=== PATIENT | male | born 1955 | race Caucasian/White ===

== ENCOUNTER 2023-08-23 11:37 | Inpatient (IN) | payer OTHER ==
[2023-08-23 12:57] LABS: #Eosinphils 0.1 thou/uL (0.0-0.7); #Monocytes 0.5 thou/uL (0.11-0.59); #Neutrophils 3.5 thou/uL (1.40-6.50); %Basophils 0.7 % (0.0-1.0); %Eosinophils 1.5 % (0.0-10.0); %Lymphocytes 8.6 % (21.0-51.0); %Monocytes 10.6 % (0.0-10.0); %Neutrophils 78.2 % (42.0-75.0); Hemoglobin 8.1 g/dL (14.0-18.0); Mean Corpuscular HGB CONC 28.9 g/dL (32.0-36.0); Mean Corpuscular Hemoglobin 22.7 pg (27.0-31.0); Mean Corpuscular Volume 78.4 fl (78.0-98.0); Mean Platelet Volume 9.5 fL (7.4-10.4); Platelet Count 191 10x3/uL (130-400); RBC Distribution Width 16.8 % (11.5-14.5); Red Blood Cell (RBC) Count 3.57 mill/uL (4.70-6.10); White Blood Cell (WBC) Count 4.5 10x3/uL (4.8-10.8)
[2023-08-23 13:13] LABS: INR-International Normal Ratio 2.1; Prothrombin Time 24.9 sec (12.0-14.7)
[2023-08-23 13:25] LABS: Anisocytosis SLIGHT = 6-15 cells (100X) (0-5/hpf); Hypochromia SLIGHT = 6-15 cells (100X) (0-5/hpf); Microcytosis SLIGHT = 6-15 cells (100X) (0-5/hpf); Poikilocytosis SLIGHT = 6-15 cells (100X) (0-5/hpf); Polychromasia SLIGHT = 2-3 cells (100X) (0-2/hpf)
[2023-08-23 13:26] LABS: ALT (SGPT) 8 U/L (8-55); AST (SGOT) 11 U/L (5-34); Albumin 3.8 g/dL (3.4-4.8); Alkaline Phosphatase 170 U/L (40-110); Anion Gap 10 mmol/L (10-20); BUN (Urea Nitrogen) 19 mg/dL (8.4-25.7); Bilirubin, Total 1.2 mg/dL (0.2-1.2); Calc. Creatinine Clearance 0 mL/min (70-130); Calcium 8.7 mg/dL (7.8-10.44); Carbon Dioxide 30 mmol/L (23-31); Chloride 99 mmol/L (98-107); Estimated GFR 37; Globulin 2.8 g/dL (2.4-3.5); Glucose 305 mg/dL (80-115); Ovalocytes SLIGHT = 2-5 cells (100X) (0-1/hpf); Platelet Adequacy Comment Appears Adequate; Potassium 3.9 mmol/L (3.5-5.1); Protein, Total 6.6 g/dL (5.8-8.1); Schistocytes SLIGHT = 2-5 cells (100X) (0-1/hpf); Sodium 135 mmol/L (136-145)
[2023-08-23] MEDS ORDERED: Dextrose 50% Abboject 50 ML SYRINGE SLOW IVP PRN (15:48)
[2023-08-23] MEDS ORDERED: Dextrose 5% in Water 1,000 ML IV PRN (15:48)
[2023-08-23] MEDS ORDERED: Glucagon 1 MG/ML KIT IM PRN (15:48)
[2023-08-23] MEDS ORDERED: Acetaminophen 325 MG TAB PO PRN (15:48)
[2023-08-23] MEDS ORDERED: HumaLOG 300 UNITS/3 ML VIAL SC PRN (15:48)
[2023-08-23 15:52] LABS: Troponin I Less than 0.010 ng/mL (< 0.028)
[2023-08-23] MEDS ORDERED: Pantoprazole 40 MG VIAL IVP SCH (16:00)
[2023-08-23 18:37] LABS: Troponin I Less than 0.010 ng/mL (< 0.028)
[2023-08-23 21:23] VITALS: BMI 35.8
[2023-08-23 22:06] LABS: #Eosinphils 0.1 thou/uL (0.0-0.7); #Monocytes 0.7 thou/uL (0.11-0.59); %Basophils 0.4 % (0.0-1.0); %Eosinophils 2.7 % (0.0-10.0); %Lymphocytes 13.6 % (21.0-51.0); %Monocytes 16.1 % (0.0-10.0); %Neutrophils 66.8 % (42.0-75.0); Hematocrit 26.7 % (42.0-52.0); Hemoglobin 7.7 g/dL (14.0-18.0); Mean Corpuscular HGB CONC 28.8 g/dL (32.0-36.0); Mean Corpuscular Hemoglobin 22.3 pg (27.0-31.0); Mean Corpuscular Volume 77.4 fl (78.0-98.0); Mean Platelet Volume 9.7 fL (7.4-10.4); Platelet Count 175 10x3/uL (130-400); RBC Distribution Width 16.9 % (11.5-14.5); Red Blood Cell (RBC) Count 3.45 mill/uL (4.70-6.10); White Blood Cell (WBC) Count 4.5 10x3/uL (4.8-10.8)
[2023-08-23] MEDS: hydrALAZINE 25 MG TAB PO SCH (23:33)
[2023-08-23] MEDS: Atorvastatin Calcium 40 MG TAB PO SCH (23:34)
[2023-08-23] MEDS: Metoprolol Tartrate 50 MG TAB PO SCH (23:34)
[2023-08-23] MEDS: Tamsulosin HCl 0.4 MG CAP PO SCH (23:34)
[2023-08-23] MEDS: Pramipexole Di-HCl 0.125 MG TAB PO SCH (23:35)
[2023-08-24 05:38] LABS: #Eosinphils 0.2 thou/uL (0.0-0.7); #Monocytes 0.7 thou/uL (0.11-0.59); #Neutrophils 2.9 thou/uL (1.40-6.50); %Basophils 0.7 % (0.0-1.0); %Eosinophils 3.4 % (0.0-10.0); %Lymphocytes 14.2 % (21.0-51.0); %Monocytes 15.3 % (0.0-10.0); %Neutrophils 66.2 % (42.0-75.0); Hematocrit 27.6 % (42.0-52.0); Hemoglobin 7.8 g/dL (14.0-18.0); Mean Corpuscular HGB CONC 28.3 g/dL (32.0-36.0); Mean Corpuscular Volume 77.7 fl (78.0-98.0); Mean Platelet Volume 8.8 fL (7.4-10.4); Platelet Count 165 10x3/uL (130-400); RBC Distribution Width 16.7 % (11.5-14.5); Red Blood Cell (RBC) Count 3.55 mill/uL (4.70-6.10); White Blood Cell (WBC) Count 4.4 10x3/uL (4.8-10.8)
[2023-08-24 06:04] LABS: Anion Gap 10 mmol/L (10-20); BUN (Urea Nitrogen) 15 mg/dL (8.4-25.7); Calc. Creatinine Clearance 71 mL/min (70-130); Calcium 8.7 mg/dL (7.8-10.44); Carbon Dioxide 29 mmol/L (23-31); Chloride 102 mmol/L (98-107); Estimated GFR 46; Glucose 185 mg/dL (80-115); Potassium 4.2 mmol/L (3.5-5.1); Sodium 137 mmol/L (136-145)
[2023-08-24] MEDS: HumaLOG 300 UNITS/3 ML VIAL SC PRN ×3 (07:01→18:51)
[2023-08-24] MEDS ORDERED: Pantoprazole 40 MG VIAL IVP SCH (09:00)
[2023-08-24] MEDS ORDERED: Insulin Glargine 30 UNITS/0.3 ML VIAL SC SCH (09:00)
[2023-08-24] MEDS: dilTIAZem CD 180 MG CAP PO SCH (09:10)
[2023-08-24] MEDS: Potassium Chloride 20 MEQ TAB PO SCH (09:10)
[2023-08-24] MEDS: FLUoxetine HCl 20 MG CAP PO SCH (09:10)
[2023-08-24] MEDS: hydrALAZINE 25 MG TAB PO SCH ×3 (09:10→21:49)
[2023-08-24] MEDS: Metoprolol Tartrate 50 MG TAB PO SCH ×2 (09:11→21:50)
[2023-08-24] MEDS: Insulin Glargine 30 UNITS/0.3 ML VIAL SC SCH (09:11)
[2023-08-24] MEDS: Furosemide 80 MG TAB PO SCH (09:11)
[2023-08-24] MEDS: GoLYTELY 4,000 ml Bottle PO SCH (21:47)
[2023-08-24] MEDS: Tamsulosin HCl 0.4 MG CAP PO SCH (21:49)
[2023-08-24] MEDS: Atorvastatin Calcium 40 MG TAB PO SCH (21:49)
[2023-08-24] MEDS: Pramipexole Di-HCl 0.125 MG TAB PO SCH (21:49)
[2023-08-24] MEDS: Pantoprazole 40 MG VIAL IVP SCH (21:50)
[2023-08-25] MEDS: GoLYTELY 4,000 ml Bottle PO SCH (02:17)
[2023-08-25] MEDS: hydrALAZINE 25 MG TAB PO SCH ×2 (08:29→15:13)
[2023-08-25] MEDS: Metoprolol Tartrate 50 MG TAB PO SCH (08:29)
[2023-08-25] MEDS: dilTIAZem CD 180 MG CAP PO SCH (08:30)
[2023-08-25] MEDS: Pantoprazole 40 MG VIAL IVP SCH (08:30)
[2023-08-25] MEDS ORDERED: PROPOFOL 20 ML ONE ×5 (11:27→12:03)
[2023-08-25] MEDS ORDERED: fentaNYL 50 mcg/mL 1 mL Vial ONE (11:27)
[2023-08-25] MEDS ORDERED: Ondansetron HCl/PF 4 MG/2 ML Vial IVP PRN (12:19)
[2023-08-25] MEDS ORDERED: Promethazine HCl 25 MG/ML VIAL IM PRN (12:19)
[2023-08-25 14:10] LABS: #Eosinphils 0.2 thou/uL (0.0-0.7); #Monocytes 0.6 thou/uL (0.11-0.59); #Neutrophils 4.7 thou/uL (1.40-6.50); %Basophils 0.6 % (0.0-1.0); %Eosinophils 2.7 % (0.0-10.0); %Lymphocytes 11.4 % (21.0-51.0); %Monocytes 9.7 % (0.0-10.0); %Neutrophils 75.3 % (42.0-75.0); Hematocrit 29.5 % (42.0-52.0); Hemoglobin 8.6 g/dL (14.0-18.0); Mean Corpuscular HGB CONC 29.2 g/dL (32.0-36.0); Mean Corpuscular Hemoglobin 22.3 pg (27.0-31.0); Mean Corpuscular Volume 76.4 fl (78.0-98.0); Mean Platelet Volume 9.4 fL (7.4-10.4); Platelet Count 199 10x3/uL (130-400); RBC Distribution Width 16.9 % (11.5-14.5); Red Blood Cell (RBC) Count 3.86 mill/uL (4.70-6.10); White Blood Cell (WBC) Count 6.3 10x3/uL (4.8-10.8)
[2023-08-25 14:33] LABS: Anion Gap 15 mmol/L (10-20); BUN (Urea Nitrogen) 13 mg/dL (8.4-25.7); Calc. Creatinine Clearance 74 mL/min (70-130); Calcium 8.7 mg/dL (7.8-10.44); Carbon Dioxide 25 mmol/L (23-31); Chloride 101 mmol/L (98-107); Estimated GFR 48; Glucose 98 mg/dL (80-115); Iron 19 ug/dL (65-175); Iron Binding Capacity, Total 385 mcg/dL (261-462); Potassium 3.9 mmol/L (3.5-5.1); Sodium 137 mmol/L (136-145)
[2023-08-25] MEDS: Potassium Chloride 20 MEQ TAB PO SCH (15:11)
[2023-08-25] MEDS: Furosemide 80 MG TAB PO SCH (15:11)
[2023-08-25] MEDS: FLUoxetine HCl 20 MG CAP PO SCH (15:12)
[2023-08-25] MEDS: Insulin Glargine 30 UNITS/0.3 ML VIAL SC SCH (15:17)
[2023-08-25] MEDS ORDERED: Iron, Sodium Ferric Gluconate 250 MG in Sodium Chloride 0.9% 250 ML 250 ML IVPB SCH (16:00)
[2023-08-25] MEDS ORDERED: Iron, Sodium Ferric Gluconate 125 MG in Sodium Chloride 0.9% 100 ML IVPB SCH ×2 (16:00)
[2023-08-25 17:03] VITALS: BP 118/62; TEMP 97.5
== END 2023-08-25 18:30 | disposition home or self-care (01) | DRG 812 ==
LOC: ERS 11:37 → ERHOLD 15:28 → 2SE 21:19
PROVIDERS: ADMIT Family Medicine; ATTEND Family Medicine
PROC: 0DBL8ZX Excision of Transverse Colon, Via Natural or Artificial Opening Endoscopic, Diagnostic (ICD-10-PCS; principal; 2023-08-25)
PROC: 0DB98ZX Excision of Duodenum, Via Natural or Artificial Opening Endoscopic, Diagnostic (ICD-10-PCS; 2023-08-25)
DX: D50.9 Iron deficiency anemia, unspecified (principal); K63.5 Polyp of colon; K64.4 Residual hemorrhoidal skin tags; K64.8 Other hemorrhoids; I12.9 Hypertensive chronic kidney disease with stage 1 through stage 4 chronic kidney disease, or unspecified chronic kidney disease; I25.10 Atherosclerotic heart disease of native coronary artery without angina pectoris; N18.30 Chronic kidney disease, stage 3 unspecified; E11.22 Type 2 diabetes mellitus with diabetic chronic kidney disease; E78.5 Hyperlipidemia, unspecified; G25.81 Restless legs syndrome; I48.91 Unspecified atrial fibrillation; K21.9 Gastro-esophageal reflux disease without esophagitis; N40.0 Benign prostatic hyperplasia without lower urinary tract symptoms; F39 Unspecified mood [affective] disorder; Z95.818 Presence of other cardiac implants and grafts; Z90.49 Acquired absence of other specified parts of digestive tract; Z90.89 Acquired absence of other organs; Z98.890 Other specified postprocedural states
CPT/HCPCS: 36415; 36416; 71045; 80048; 80053; 83540; 83550; 83880; 84484; 85025; 85610; 85730; 86850; 86900; 86901; 88305; 93005; 93010; 93306; C9113; J1815; J2704; J2916; J3010; J3490

== ENCOUNTER 2024-09-12 13:55 | Observation (INO) | payer OTHER ==
[2024-09-12] MEDS ORDERED: Atropine Sulfate 1 mg/10 ml Syringe ONE (14:13)
[2024-09-12 14:41] LABS: #Basophils 0.03 10x3/uL (0.0-0.2); %Basophils 0.4 % (0.0-1.0); %Eosinophils 1.3 % (0.0-10.0); %Lymphocytes 14.9 % (21.0-51.0); %Monocytes 6.7 % (0.0-10.0); %Neutrophils 76.2 % (42.0-75.0); Hematocrit 38.5 % (42.0-52.0); Hemoglobin 12.8 g/dL (14.0-18.0); Mean Corpuscular HGB CONC 33.2 g/dL (32.0-36.0); Mean Corpuscular Hemoglobin 29.8 pg (27.0-31.0); Mean Corpuscular Volume 89.7 fL (78.0-98.0); Mean Platelet Volume 10.4 fL (7.4-10.4); Platelet Count 159 10x3/uL (130-400); RBC Distribution Width 13.5 % (11.5-14.5); Red Blood Cell (RBC) Count 4.29 mill/uL (4.70-6.10)
[2024-09-12 14:54] LABS: INR-International Normal Ratio 1.7; Prothrombin Time 19.8 sec (12.0-14.7)
[2024-09-12 14:55] LABS: PTT 33.8 sec (22.9-36.1)
[2024-09-12 15:08] LABS: ALT (SGPT) 14 U/L (8-55); AST (SGOT) 15 U/L (5-34); Albumin 3.2 g/dL (3.4-4.8); Alkaline Phosphatase 148 U/L (40-110); Anion Gap 12 mmol/L (10-20); BUN (Urea Nitrogen) 27 mg/dL (8.4-25.7); Bilirubin, Total 1.1 mg/dL (0.2-1.2); Calc. Creatinine Clearance 0 mL/min (70-130); Calcium 10.6 mg/dL (7.8-10.44); Carbon Dioxide 22 mmol/L (23-31); Chloride 105 mmol/L (98-107); Estimated GFR 36; Globulin 2.9 g/dL (2.4-3.5); Glucose 232 mg/dL (80-115); Potassium 4.5 mmol/L (3.5-5.1); Protein, Total 6.1 g/dL (5.8-8.1); Sodium 134 mmol/L (136-145)
[2024-09-12] MEDS ORDERED: Acetaminophen 325 MG TAB PO PRN (16:57)
[2024-09-12 17:09] VITALS: BMI 34.5
[2024-09-12] MEDS: Sodium Chloride 0.9% 1,000 ML IV SCH (17:13)
[2024-09-12 18:40] LABS: Troponin I 0.013 ng/mL (< 0.028)
[2024-09-12] MEDS ORDERED: Ondansetron ODT 4 MG TAB SL PRN (18:45)
[2024-09-12] MEDS ORDERED: Ondansetron PF 4 MG/2 ML Vial IVP PRN (18:45)
[2024-09-12 20:44] LABS: Troponin I Less than 0.010 ng/mL (< 0.028)
[2024-09-12] MEDS: Apixaban 5 MG TAB PO SCH (20:56)
[2024-09-12] MEDS: Atorvastatin Calcium 40 MG TAB PO SCH (20:56)
[2024-09-12] MEDS: Aspirin 81 mg Enteric Coated Tablet PO SCH (20:58)
[2024-09-13 04:39] LABS: #Basophils 0.03 10x3/uL (0.0-0.2); %Basophils 0.5 % (0.0-1.0); %Lymphocytes 18.6 % (21.0-51.0); %Monocytes 11.3 % (0.0-10.0); %Neutrophils 66.4 % (42.0-75.0); Hematocrit 33.7 % (42.0-52.0); Mean Corpuscular HGB CONC 32.6 g/dL (32.0-36.0); Mean Corpuscular Volume 91.8 fL (78.0-98.0); Mean Platelet Volume 10.3 fL (7.4-10.4); Platelet Count 128 10x3/uL (130-400); RBC Distribution Width 13.4 % (11.5-14.5); Red Blood Cell (RBC) Count 3.67 mill/uL (4.70-6.10)
[2024-09-13 05:11] LABS: Anion Gap 10 mmol/L (10-20); BUN (Urea Nitrogen) 23 mg/dL (8.4-25.7); Calc. Creatinine Clearance 62 mL/min (70-130); Calcium 8.5 mg/dL (7.8-10.44); Carbon Dioxide 25 mmol/L (23-31); Chloride 108 mmol/L (98-107); Estimated GFR 41; Glucose 130 mg/dL (80-115); Potassium 3.7 mmol/L (3.5-5.1); Sodium 139 mmol/L (136-145)
[2024-09-13] MEDS: Ferrous Sulfate 325 MG TAB PO SCH (09:23)
[2024-09-13 14:59] VITALS: BP 122/84; TEMP 99.1
== END 2024-09-13 16:58 | disposition home or self-care (01) ==
LOC: ERS 13:55 → INTOOBSV 16:51 → 2NO 16:51
PROVIDERS: ADMIT Internal Medicine; ATTEND Internal Medicine
DX: I95.9 Hypotension, unspecified (principal); I25.10 Atherosclerotic heart disease of native coronary artery without angina pectoris; I48.91 Unspecified atrial fibrillation; I13.0 Hypertensive heart and chronic kidney disease with heart failure and stage 1 through stage 4 chronic kidney disease, or unspecified chronic kidney disease; I50.30 Unspecified diastolic (congestive) heart failure; N18.30 Chronic kidney disease, stage 3 unspecified; N17.9 Acute kidney failure, unspecified; E11.22 Type 2 diabetes mellitus with diabetic chronic kidney disease; E78.5 Hyperlipidemia, unspecified; Z95.5 Presence of coronary angioplasty implant and graft; Z90.89 Acquired absence of other organs; Z90.49 Acquired absence of other specified parts of digestive tract; Z98.890 Other specified postprocedural states; Z88.0 Allergy status to penicillin; Z79.4 Long term (current) use of insulin; Z79.82 Long term (current) use of aspirin; Z79.899 Other long term (current) drug therapy
CPT/HCPCS: 80048; 80053; 83880; 84484 ×2; 85025 ×2; 85610; 85730; 93005; 96374; 99285; G0378 ×2; J0461; J7030; 36415

== ENCOUNTER 2025-06-25 09:11 | Outpatient (CLI) | payer OTHER | END 2025-06-25 09:12 | disposition home or self-care (01) | LOC: ULT 09:11 | PROVIDERS: ATTEND Family Medicine | DX: Z13.6 Encounter for screening for cardiovascular disorders (principal); Z87.891 Personal history of nicotine dependence | CPT/HCPCS: 76706 ==